=== PATIENT | female | born 1960 | race Caucasian/White ===

== ENCOUNTER → 2017-05-23 | Outpatient (CLI) | payer MEDICARE, MEDICAID ==
[~2017-05-23] MED LIST: /DULO30CA PO; /LAMO20TA OR; /LORA10TA PO; /QUET10TA OR; /ROPI1TA OR; CALC600T7 PO; CYMB1CAP PO; CYMB60CA3 PO; DRIS1CAP PO; DYAZCA PO; FLUTISP; IBUPPOW25 PO; KLOR10TA5 PO; MAG400TA PO; MELA3TAB12 PO; MULTLIQ7 PO; NEUR400C OR; OMEP40CA2 PO; SERT100T OR; SKEL800T97 PO; SUMA100T2 PO; VENTAER IN; VICO5TAB PO; VICOBULK PO; VOLT1GEL2 TOP; ZANA4TAB PO
--- NOTE | 2017-05-23 12:24 | REPMRS ---
Patient History The patient states she has not had a clinical breast exam in over a year. Patient is postmenopausal. No known family history of cancer. Digital Woman Screen Mammo: May 23, 2017 - Exam #: [id number] Bilateral CC and MLO view(s) were taken. Technologist: Jennyfer Judd, Technologist Prior study comparison: April 03, 2015, digital woman screen mammo performed at [facility]. January 10, 2014, digital woman screen mammo performed at [facility] to [facility]. FINDINGS: The breast tissue is heterogeneously dense. This may lower the sensitivity of mammography. There has been no change in the appearance of the mammogram from the prior studies. There is a moderate amount of residual fibroglandular tissue which is fairly symmetric. There is no interval development of dominant mass, areas of architectural distortion, or clustered microcalcification typical of malignancy. ASSESSMENT: BI-RADS/ACR category 1 mammogram. Negative. Recommendation Routine screening mammogram in 1 year (for women over age 40). This mammogram was interpreted with the aid of an FDA-approved computer-aided dectection system. Electronically Signed By: Du Kirkland MD 05/23/17 [id number]
== END ==
LOC: M WHC 11:05
PROVIDERS: ATTEND Family Medicine
DX: Z12.31 Encounter for screening mammogram for malignant neoplasm of breast (principal); R92.8 Other abnormal and inconclusive findings on diagnostic imaging of breast; Z78.0 Asymptomatic menopausal state

== ENCOUNTER → 2017-08-03 | Outpatient (CLI) | payer MEDICARE, MEDICAID ==
[2017-08-06 00:11] LABS: LACOSAMIDE LEVEL 4.5 ug/mL (5.0-10.0)
== END ==
LOC: M SMT 09:00
PROVIDERS: ATTEND Physician Assistant Medical
DX: Z51.81 Encounter for therapeutic drug level monitoring (principal); Z79.899 Other long term (current) drug therapy; R56.9 Unspecified convulsions

== ENCOUNTER → 2018-02-24 | Outpatient (REF) | payer MEDICARE, MEDICAID ==
[2018-02-28 00:07] LABS: LACOSAMIDE LEVEL 7.2 ug/mL (5.0-10.0)
[2018-02-28 00:07] LABS: LAMOTRIGINE (LAMICTAL) 3.4 ug/mL (2.0-20.0)
== END ==
LOC: M LABDRAWP 13:26
DX: R56.9 Unspecified convulsions (principal); Z51.81 Encounter for therapeutic drug level monitoring; Z79.899 Other long term (current) drug therapy
CPT/HCPCS: 82542

== ENCOUNTER → 2018-02-24 | Outpatient (REF) | payer MEDICARE, MEDICAID ==
[2018-02-24 13:38] LABS: BASO % 0.2 % (0.0-1.0); EOS # 0.1 10^3/uL (0.0-0.50); EOS % 1.1 % (0.0-3.0); HEMATOCRIT 40.4 % (36.0-47.0); HEMOGLOBIN 13.3 g/dl (12.0-15.5); IMMATURE GRANULOCYTE % 0.4 % (0-3.0); LYMPH # 2.6 10^3/uL (1.5-4.5); LYMPH % 30.9 % (24.0-44.0); MEAN CORPUSCULAR HEMOGLOBIN 30.4 pg (27.0-33.0); MEAN CORPUSCULAR HGB CONC 32.9 g/dl (32.0-36.5); MEAN CORPUSCULAR VOLUME 92.2 fl (80.0-96.0); MONO # 0.5 10^3/uL (0.0-0.8); MONO % 6.3 % (0.0-5.0); NEUTROPHILS # 5.1 10^3/uL (1.8-7.7); NEUTROPHILS % 61.1 % (36.0-66.0); PLATELET COUNT, AUTOMATED 290 10^3/uL (150-450); RED BLOOD COUNT 4.38 10^6/uL (4.00-5.40); RED CELL DISTRIBUTION WIDTH 14.1 % (11.5-14.5); WHITE BLOOD COUNT 8.3 10^3/uL (4.0-10.0)
[2018-02-24 14:08] LABS: ALBUMIN 3.7 GM/DL (3.2-5.2); ALBUMIN/GLOBULIN RATIO 1.03 (1.00-1.93); ALKALINE PHOSPHATASE 135 U/L (45-117); ALT/SGPT 29 U/L (12-78); ANION GAP 6 MEQ/L (8-16); AST/SGOT 13 U/L (7-37); BILIRUBIN,TOTAL 0.2 MG/DL (0.2-1.0); BLOOD UREA NITROGEN 20 MG/DL (7-18); CALCIUM LEVEL 9.2 MG/DL (8.5-10.1); CARBON DIOXIDE LEVEL 28 MEQ/L (21-32); CHLORIDE LEVEL 106 MEQ/L (98-107); CREATININE FOR GFR 0.61 MG/DL (0.55-1.30); GLOMERULAR FILTRATION RATE > 60.0 (>51); GLUCOSE, FASTING 91 MG/DL (70-100); MAGNESIUM LEVEL 2.2 MG/DL (1.8-2.4); POTASSIUM SERUM 4.3 MEQ/L (3.5-5.1); SODIUM LEVEL 140 MEQ/L (136-145); TOTAL PROTEIN 7.3 GM/DL (6.4-8.2)
[2018-03-01 14:15] LABS: HPV HYBRID CAPTURE II Negative (Negative)
== END ==
LOC: M SFHCWAGY 11:12
DX: Z12.4 Encounter for screening for malignant neoplasm of cervix (principal); N95.0 Postmenopausal bleeding; G25.81 Restless legs syndrome; R56.9 Unspecified convulsions; Z51.81 Encounter for therapeutic drug level monitoring; Z79.899 Other long term (current) drug therapy
CPT/HCPCS: 83735

== ENCOUNTER → 2018-02-27 | Outpatient (CLI) | payer MEDICARE, MEDICAID | LOC: M RAD 13:59 | DX: N95.0 Postmenopausal bleeding (principal) | CPT/HCPCS: 76856 ==

== ENCOUNTER → 2018-03-21 | Outpatient (REF) | payer MEDICARE, MEDICAID | LOC: M SFHCWAGY 14:16 | DX: N95.0 Postmenopausal bleeding (principal) | CPT/HCPCS: 88304 ==

== ENCOUNTER → 2018-05-05 | Outpatient (REF) | payer MEDICARE, MEDICAID ==
[2018-05-05 13:17] LABS: BACTERIA, URINE AUTO NEGATIVE (NEGATIVE); MUCUS, URINE SMALL (NEGATIVE); RBC, URINE AUTO 0 /HPF (0-3); SQUAMOUS EPITHELIAL CELL UR AU 1 /HPF (0-6); WBC, URINE AUTO 1 /HPF (0-3)
== END ==
LOC: M SMT 12:55
DX: R32 Unspecified urinary incontinence (principal)
CPT/HCPCS: 81015

== ENCOUNTER 2018-07-28 12:22 | Day surgery (SDC) | payer MEDICARE ==
[~2018-07-28 12:22] MED LIST changes: -/DULO30CA PO; -/LAMO20TA OR; -/LORA10TA PO; -/QUET10TA OR; -/ROPI1TA OR; -CALC600T7 PO; -CYMB1CAP PO; -CYMB60CA3 PO; -DRIS1CAP PO; -DYAZCA PO; -FLUTISP; -IBUPPOW25 PO; +KETOROLAC 60 MG/2 ML VIAL (J1885) As Ordered; -KLOR10TA5 PO; +LIDOCAINE 2% INJ 100 MG/5 ML SDV (FOR ANES.) As Ordered; -MAG400TA PO; -MELA3TAB12 PO; +MIDAZOLAM INJ 2 MG/2 ML VIAL (J2250) As Ordered; -MULTLIQ7 PO; -NEUR400C OR; -OMEP40CA2 PO; +ONDANSETRON 4MG/2ML VIAL (J2405) As Ordered; +PROPOFOL 200 MG/20 ML VIAL As Ordered; -SERT100T OR; -SKEL800T97 PO; -SUMA100T2 PO; -VENTAER IN; -VICO5TAB PO; -VICOBULK PO; -VOLT1GEL2 TOP; -ZANA4TAB PO; +dexameTHASONE 4 MG/ML 1ML VIAL (J1100) As Ordered; +fentaNYL 100 MCG/2 ML INJECTION (J3010) As Ordered
[2018-07-28 12:56] LABS: HEMATOCRIT 41.2 % (36.0-47.0); MEAN CORPUSCULAR HEMOGLOBIN 30.1 pg (27.0-33.0); MEAN CORPUSCULAR VOLUME 88.6 fl (80.0-96.0); PLATELET COUNT, AUTOMATED 316 10^3/uL (150-450); RED BLOOD COUNT 4.65 10^6/uL (4.00-5.40); RED CELL DISTRIBUTION WIDTH 14.4 % (11.5-14.5); WHITE BLOOD COUNT 9.5 10^3/uL (4.0-10.0)
[2018-07-28] MEDS ORDERED: LIDOCAINE 1% MDV 20ML VIAL SQ (13:30)
[2018-07-28] MEDS: LR 1,000 ML IV (13:30)
[2018-07-28] MEDS: ALBUTEROL SULFATE 2.5 MG/0.5 ML INH NEB SOLN INH (14:36)
[2018-07-28] MEDS: LIDOCAINE 1% SDV INJ 30 ML VIAL As Ordered (16:26)
[2018-07-28] MEDS ORDERED: ACETAMINOPHEN 500 MG TAB As Ordered (17:09)
[2018-07-28] MEDS ORDERED: LR 1,000 ML IV (17:45)
[2018-07-28] MEDS ORDERED: ACETAMINOPHEN 500 MG TAB PO (18:00)
== END 2018-07-28 17:50 | disposition home or self-care (01) ==
LOC: M SDC 12:22
DX: N95.0 Postmenopausal bleeding (principal); I10 Essential (primary) hypertension; G30.9 Alzheimer's disease, unspecified; G40.909 Epilepsy, unspecified, not intractable, without status epilepticus; M79.7 Fibromyalgia; K21.9 Gastro-esophageal reflux disease without esophagitis; F41.9 Anxiety disorder, unspecified; F32.9 Major depressive disorder, single episode, unspecified; R60.0 Localized edema; K58.9 Irritable bowel syndrome, unspecified; D64.9 Anemia, unspecified; R29.898 Other symptoms and signs involving the musculoskeletal system; M12.9 Arthropathy, unspecified; M54.9 Dorsalgia, unspecified; J44.9 Chronic obstructive pulmonary disease, unspecified; R06.02 Shortness of breath; F31.9 Bipolar disorder, unspecified; Z88.8 Allergy status to other drugs, medicaments and biological substances; Z79.899 Other long term (current) drug therapy; Z72.0 Tobacco use; Z87.820 Personal history of traumatic brain injury; Z87.442 Personal history of urinary calculi; Z87.440 Personal history of urinary (tract) infections; Z86.79 Personal history of other diseases of the circulatory system
CPT/HCPCS: 58558

== ENCOUNTER 2023-04-11 10:35 | Emergency (ER) | payer MEDICARE, MEDICAID ==
[~2023-04-11] VITALS: Ht 152.4 cm; Wt 66.8 kg
[~2023-04-11 10:35] MED LIST changes: +ALEV220T26 PO; +CALC600T7 PO; +CYMB1CAP PO; +CYMB1CAP5 PO; +CYMB60CA3 PO; +CYMB60CA4 PO; +DRIS1CAP PO; +DYAZCA PO; +FLON1SPR; +FLUT1SPR2; +HYDR-4514 PO; +IBUPPOW25 PO; -KETOROLAC 60 MG/2 ML VIAL (J1885) As Ordered; +KLOR10TA5 PO; +LAMI1TAB9 OR; +LAMI200T PO; -LIDOCAINE 2% INJ 100 MG/5 ML SDV (FOR ANES.) As Ordered; +LORA-385 PO; +MAG400TA PO; +MELA3TAB12 PO; -MIDAZOLAM INJ 2 MG/2 ML VIAL (J2250) As Ordered; +MULT1TAB10 PO; +MULTLIQ7 PO; +NAPR-849 PO; +NEUR400C OR; +OMEP40CA2 PO; +OMEP40CA4 PO; -ONDANSETRON 4MG/2ML VIAL (J2405) As Ordered; +POTA-149 PO; -PROPOFOL 200 MG/20 ML VIAL As Ordered; +REQU1TAB16 OR; +REQU2TAB PO; +REQU2TAB3 PO; +SERO1TAB OR; +SERT100T OR; +SKEL800T97 PO; +SUMA100T2 PO; +TIZA2CAP PO; +TRIA37.5 PO; +VENTAER IN; +VENTAER INH; +VICO5TAB PO; +VICO7.5T12 PO; +VICOBULK PO; +VIMP150T PO; +VOLT1GEL15 TD; +VOLT1GEL2 TOP; +ZANA4TAB PO; -dexameTHASONE 4 MG/ML 1ML VIAL (J1100) As Ordered; -fentaNYL 100 MCG/2 ML INJECTION (J3010) As Ordered
[2023-04-11 13:47] VITALS: BP 134/79; TEMP 98; O2SAT 95
== END 2023-04-11 13:48 | disposition home or self-care (01) ==
LOC: M ED 10:35
DX: G89.18 Other acute postprocedural pain (principal); G47.33 Obstructive sleep apnea (adult) (pediatric); F03.90 Unspecified dementia, unspecified severity, without behavioral disturbance, psychotic disturbance, mood disturbance, and anxiety; F17.200 Nicotine dependence, unspecified, uncomplicated; Z88.8 Allergy status to other drugs, medicaments and biological substances; Z79.899 Other long term (current) drug therapy; Z79.51 Long term (current) use of inhaled steroids; Z96.651 Presence of right artificial knee joint

== ENCOUNTER → 2024-04-13 | Outpatient (CLI) | payer MEDICARE, OTHER ==
[~2024-04-13] MED LIST changes: +ARIP1TAB6; +CALC-356; +GASTROGRAFIN SOLUTION 30ML As Ordered ONE; +NYST1POW9; +PREG50CA3; +SUMA100T2; +TERB250T91
== END ==
LOC: M RAD 07:55
PROVIDERS: ATTEND Internal Medicine Hematology & Oncology
DX: C50.812 Malignant neoplasm of overlapping sites of left female breast (principal)
CPT/HCPCS: 70450; 71250; 74176; Q9963

== ENCOUNTER → 2024-04-18 | Outpatient (CLI) | payer MEDICARE, MEDICAID ==
[~2024-04-18] MED LIST changes: -GASTROGRAFIN SOLUTION 30ML As Ordered ONE
== END ==
LOC: M CARPUL 10:22
PROVIDERS: ATTEND Internal Medicine Hematology & Oncology
DX: R06.01 Orthopnea (principal); C50.812 Malignant neoplasm of overlapping sites of left female breast; Z79.899 Other long term (current) drug therapy

== ENCOUNTER → 2024-05-10 | Outpatient (CLI) | payer MEDICARE, OTHER ==
[~2024-05-10] MED LIST changes: +ARIP10TA32; +LETR2.5T2 PO
== END ==
LOC: M RAD 09:57
PROVIDERS: ATTEND Internal Medicine Hematology & Oncology
DX: C50.812 Malignant neoplasm of overlapping sites of left female breast (principal)

== ENCOUNTER → 2024-06-26 | Outpatient (CLI) | payer MEDICARE, MEDICAID | LOC: M PLARAD 08:52 | PROVIDERS: ATTEND Internal Medicine Pulmonary Disease | DX: R91.8 Other nonspecific abnormal finding of lung field (principal); Z85.3 Personal history of malignant neoplasm of breast; C78.7 Secondary malignant neoplasm of liver and intrahepatic bile duct | CPT/HCPCS: 78815; A9552 ==

== ENCOUNTER 2024-07-11 08:51 | Day surgery (SDC) | payer MEDICARE, MEDICAID ==
[~2024-07-11] VITALS: Ht 157.5 cm; Wt 63.6 kg
[~2024-07-11 08:51] MED LIST changes: -ARIP10TA32; +ARIP10TA63; +ROPI4TAB36 PO
[2024-07-11] MEDS: CETACAINE SPRAY 5GM As Ordered ONE (13:25)
[2024-07-11] MEDS ORDERED: ONDANSETRON 4MG 2ML VIAL As Ordered ONE (13:31)
[2024-07-11] MEDS ORDERED: propofoL 200 MG/20 ML VIAL As Ordered ONE (13:31)
[2024-07-11] MEDS ORDERED: MIDAZOLAM INJ 2MG/2ML VIAL As Ordered ONE (13:31)
[2024-07-11] MEDS ORDERED: fentaNYL 100 MCG/2 ML INJECTION As Ordered ONE (13:31)
[2024-07-11] MEDS ORDERED: LIDOCAINE 2% 100MG/5ML SDV (FOR ANES.) As Ordered ONE (13:31)
[2024-07-11] MEDS ORDERED: SUGAMMADEX SODIUM 500 MG/5 ML VIAL (BRIDION) As Ordered ONE (13:31)
[2024-07-11] MEDS ORDERED: ROCURONIUM BROMIDE 50MG/5ML VIAL As Ordered ONE (13:31)
[2024-07-11] MEDS ORDERED: HYDROMORPHONE HCL 0.5 MG/ 0.5 ML SYRINGE IV PRN (13:55)
[2024-07-11] MEDS ORDERED: oxyCODONE 5MG TAB PO PRN (13:55)
[2024-07-11] MEDS ORDERED: LR 1,000 ML IV SCH (13:55)
[2024-07-11] MEDS ORDERED: ONDANSETRON 4MG 2ML VIAL IV PRN (13:55)
[2024-07-11] MEDS ORDERED: fentaNYL 100 MCG/2 ML INJECTION IV PRN (13:55)
[2024-07-11] MEDS: EPINEPHrine 1MG/10ML SYRINGE 1.5IN As Ordered ONE (14:06)
[2024-07-11 14:51] VITALS: BP 95/61; TEMP 96.5; O2SAT 92
== END 2024-07-11 15:27 | disposition home or self-care (01) ==
LOC: M SDC 08:51
PROVIDERS: ATTEND Internal Medicine Pulmonary Disease
DX: C34.12 Malignant neoplasm of upper lobe, left bronchus or lung (principal); C77.1 Secondary and unspecified malignant neoplasm of intrathoracic lymph nodes; R56.9 Unspecified convulsions; Z85.05 Personal history of malignant neoplasm of liver; Z85.51 Personal history of malignant neoplasm of bladder; Z85.3 Personal history of malignant neoplasm of breast; N39.3 Stress incontinence (female) (male); J44.9 Chronic obstructive pulmonary disease, unspecified; Z79.899 Other long term (current) drug therapy; G30.9 Alzheimer's disease, unspecified; F02.80 Dementia in other diseases classified elsewhere, unspecified severity, without behavioral disturbance, psychotic disturbance, mood disturbance, and anxiety; F43.10 Post-traumatic stress disorder, unspecified; G47.30 Sleep apnea, unspecified; Z92.21 Personal history of antineoplastic chemotherapy
CPT/HCPCS: 31624; 31652; 71045; 88108; 88173; 88305; 88313; J1100; J2250; J2405; J3010

== ENCOUNTER → 2024-07-18 | Outpatient (CLI) | payer MEDICARE, MEDICAID ==
[~2024-07-18] MED LIST changes: +HYDR-3490 PO; +LIDOCAINE 1% MDV 20ML VIAL As Ordered ONE; +TRAZ-252 PO
[2024-07-18 12:20] VITALS: TEMP 97.8
[2024-07-18 15:00] VITALS: BP 109/72; O2SAT 96
== END ==
LOC: M IRPRO 12:01
PROVIDERS: ATTEND Internal Medicine Hematology & Oncology
DX: C78.7 Secondary malignant neoplasm of liver and intrahepatic bile duct (principal)

== ENCOUNTER → 2024-07-19 | Outpatient (CLI) | payer MEDICARE, OTHER ==
[~2024-07-19] MED LIST changes: -LIDOCAINE 1% MDV 20ML VIAL As Ordered ONE
== END ==
LOC: M PLARAD 09:11
PROVIDERS: ATTEND Internal Medicine Hematology & Oncology
DX: C50.919 Malignant neoplasm of unspecified site of unspecified female breast (principal)

== ENCOUNTER → 2024-07-20 | Outpatient (CLI) | payer MEDICARE, MEDICAID | LOC: M ONCR 10:52 | PROVIDERS: ATTEND General Practice | DX: C34.12 Malignant neoplasm of upper lobe, left bronchus or lung (principal); C50.912 Malignant neoplasm of unspecified site of left female breast; C78.7 Secondary malignant neoplasm of liver and intrahepatic bile duct; Z79.51 Long term (current) use of inhaled steroids; Z79.890 Hormone replacement therapy; Z79.899 Other long term (current) drug therapy; Z87.891 Personal history of nicotine dependence; Z88.8 Allergy status to other drugs, medicaments and biological substances; Z90.49 Acquired absence of other specified parts of digestive tract; Z90.710 Acquired absence of both cervix and uterus ==

== ENCOUNTER → 2024-08-01 | Outpatient (CLI) | payer MEDICARE, MEDICAID ==
[~2024-08-01] MED LIST changes: +LIDO100S29 PO; +LIDOCAINE 1% MDV 20ML VIAL As Ordered ONE; +MIDAZOLAM INJ 2MG/2ML VIAL As Ordered ONE; +NS 1,000 ML IV SCH; +ONDA-282 PO; +OXYC1SOL3 PO; +ceFAZolin 2 GM/D5W 50 ML IV BAG As Ordered ONE; +fentaNYL 100 MCG/2 ML INJECTION As Ordered ONE
[2024-08-01 10:05] VITALS: TEMP 97.1
[2024-08-01] MEDS: ceFAZolin SOD 2 GM in IV 1 EA IV ONE (10:31)
[2024-08-01 11:45] VITALS: BP 137/81; O2SAT 92
== END ==
LOC: M IRPRO 09:46
PROVIDERS: ATTEND General Practice
DX: C34.12 Malignant neoplasm of upper lobe, left bronchus or lung (principal)
CPT/HCPCS: 36561; 99152; 99153; C1894; J0690; J1642; J2250; J3010

== ENCOUNTER → 2024-08-09 | Outpatient (RCR) | payer MEDICARE, MEDICAID ==
[2024-08-06 12:25] LABS: BASO % 0.2 % (0.0-1.0); HEMATOCRIT 39.8 % (36.0-47.0); HEMOGLOBIN 13.1 g/dl (12.0-15.5); LYMPH # 0.8 10^3/uL (1.5-5.0); LYMPH % 5.8 % (24.0-44.0); MEAN CORPUSCULAR HEMOGLOBIN 30.5 pg (27.0-33.0); MEAN CORPUSCULAR HGB CONC 32.9 g/dl (32.0-36.5); MEAN CORPUSCULAR VOLUME 92.8 fl (80.0-96.0); MONO # 0.7 10^3/uL (0.0-0.8); MONO % 5.2 % (2.0-8.0); NEUTROPHILS # 11.4 10^3/uL (1.5-8.5); NEUTROPHILS % 87.9 % (36.0-66.0); PLATELET COUNT, AUTOMATED 320 10^3/uL (150-450); RED BLOOD COUNT 4.29 10^6/uL (4.00-5.40)
[2024-08-06 13:12] LABS: ALBUMIN 2.4 G/DL (3.2-5.2); ALKALINE PHOSPHATASE 318 U/L (35-104); ALT/SGPT 72 U/L (7.0-40); AST/SGOT 148 U/L (<34); BILIRUBIN,TOTAL 1.2 MG/DL (0.3-1.2); BLOOD UREA NITROGEN 31 MG/DL (9-23); CALCIUM LEVEL 9.8 MG/DL (8.3-10.6); CARBON DIOXIDE LEVEL 28 MMOL/L (20-31); CHLORIDE LEVEL 104 MMOL/L (98-107); CREATININE FOR GFR 0.43 MG/DL (0.55-1.30); GLOMERULAR FILTRATION RATE > 60.0 (>45); GLUCOSE, FASTING 77 MG/DL (74-106); POTASSIUM SERUM 4.3 MMOL/L (3.5-5.1); SODIUM LEVEL 136 MMOL/L (136-145); TOTAL PROTEIN 5.7 G/DL (5.7-8.2)
[~2024-08-09] MED LIST changes: +LIDO30CR18 TOP; -LIDOCAINE 1% MDV 20ML VIAL As Ordered ONE; -MIDAZOLAM INJ 2MG/2ML VIAL As Ordered ONE; -NS 1,000 ML IV SCH; -ceFAZolin 2 GM/D5W 50 ML IV BAG As Ordered ONE; -fentaNYL 100 MCG/2 ML INJECTION As Ordered ONE
== END ==
LOC: M ONCR 07-24 13:33
PROVIDERS: ATTEND General Practice
DX: Z51.0 Encounter for antineoplastic radiation therapy (principal); C34.12 Malignant neoplasm of upper lobe, left bronchus or lung

== ENCOUNTER 2024-08-10 11:45 | Outpatient (RCR) | payer MEDICAID, MEDICARE, OTHER ==
[~2024-08-10 11:45] MED LIST changes: -LIDO30CR18 TOP; +NYST1POW3; -NYST1POW9
[2024-08-14] MEDS ORDERED: LIDO30CR18 TOP (10:54)
== END 2024-08-26 ==
LOC: M ONCR 11:45
PROVIDERS: ATTEND General Practice
DX: Z51.0 Encounter for antineoplastic radiation therapy (principal); C34.12 Malignant neoplasm of upper lobe, left bronchus or lung

== ENCOUNTER 2024-08-17 09:52 | Outpatient (RCR) | payer MEDICARE, MEDICAID ==
[2024-04-03 10:58] VITALS: BP 121/85; O2SAT 97
[2024-04-03 12:24] LABS: BASO % 0.5 % (0.0-1.0); EOS # 0.1 10^3/uL (0.0-0.5); EOS % 1.7 % (0.0-3.0); HEMATOCRIT 40.2 % (36.0-47.0); HEMOGLOBIN 13.5 g/dl (12.0-15.5); LYMPH # 2.3 10^3/uL (1.5-5.0); LYMPH % 34.7 % (24.0-44.0); MEAN CORPUSCULAR HEMOGLOBIN 31.2 pg (27.0-33.0); MEAN CORPUSCULAR HGB CONC 33.6 g/dl (32.0-36.5); MEAN CORPUSCULAR VOLUME 92.8 fl (80.0-96.0); MONO # 0.4 10^3/uL (0.0-0.8); MONO % 6.3 % (2.0-8.0); NEUTROPHILS # 3.7 10^3/uL (1.5-8.5); NEUTROPHILS % 56.5 % (36.0-66.0); PLATELET COUNT, AUTOMATED 267 10^3/uL (150-450); RED BLOOD COUNT 4.33 10^6/uL (4.00-5.40); WHITE BLOOD COUNT 6.5 10^3/uL (4.0-10.0)
[2024-04-03 13:05] LABS: ALBUMIN 3.3 G/DL (3.2-5.2); ALKALINE PHOSPHATASE 128 U/L (46-116); ALT/SGPT 13 U/L (7.0-40); AST/SGOT 12 U/L (<34); BILIRUBIN,TOTAL 0.4 MG/DL (0.3-1.2); BLOOD UREA NITROGEN 18 MG/DL (9-23); CALCIUM LEVEL 9.5 MG/DL (8.3-10.6); CARBON DIOXIDE LEVEL 31 MMOL/L (20-31); CHLORIDE LEVEL 110 MMOL/L (98-107); CREATININE FOR GFR 0.46 MG/DL (0.55-1.30); GLOMERULAR FILTRATION RATE > 60.0 (>45); GLUCOSE, FASTING 84 MG/DL (74-106); POTASSIUM SERUM 4.3 MMOL/L (3.5-5.1); SODIUM LEVEL 143 MMOL/L (136-145); TOTAL PROTEIN 6.5 G/DL (5.7-8.2)
[2024-04-18 11:52] LABS: BASO % 0.5 % (0.0-1.0); EOS # 0.1 10^3/uL (0.0-0.5); EOS % 1.9 % (0.0-3.0); HEMATOCRIT 41.3 % (36.0-47.0); HEMOGLOBIN 13.7 g/dl (12.0-15.5); MEAN CORPUSCULAR HGB CONC 33.2 g/dl (32.0-36.5); MEAN CORPUSCULAR VOLUME 93.4 fl (80.0-96.0); MONO # 0.5 10^3/uL (0.0-0.8); MONO % 6.7 % (2.0-8.0); NEUTROPHILS # 4.6 10^3/uL (1.5-8.5); NEUTROPHILS % 62.6 % (36.0-66.0); PLATELET COUNT, AUTOMATED 270 10^3/uL (150-450); RED BLOOD COUNT 4.42 10^6/uL (4.00-5.40); WHITE BLOOD COUNT 7.3 10^3/uL (4.0-10.0)
[2024-04-18 12:26] LABS: ALBUMIN 3.4 G/DL (3.2-5.2); ALKALINE PHOSPHATASE 149 U/L (46-116); ALT/SGPT 12 U/L (7.0-40); AST/SGOT 10 U/L (<34); BILIRUBIN,TOTAL 0.3 MG/DL (0.3-1.2); BLOOD UREA NITROGEN 20 MG/DL (9-23); CALCIUM LEVEL 9.6 MG/DL (8.3-10.6); CARBON DIOXIDE LEVEL 35 MMOL/L (20-31); CHLORIDE LEVEL 106 MMOL/L (98-107); CREATININE FOR GFR 0.56 MG/DL (0.55-1.30); GLOMERULAR FILTRATION RATE > 60.0 (>45); GLUCOSE, FASTING 102 MG/DL (74-106); POTASSIUM SERUM 4.1 MMOL/L (3.5-5.1); SODIUM LEVEL 141 MMOL/L (136-145); TOTAL PROTEIN 6.7 G/DL (5.7-8.2)
[2024-04-18 13:06] LABS: CA15-3 ANTIGEN 10.6 U/ML (<32.4)
[2024-05-04 13:05] VITALS: BP 119/83; O2SAT 95
[2024-06-29 11:40] VITALS: BP 108/71; O2SAT 96
[2024-06-29 12:46] LABS: BASO % 0.2 % (0.0-1.0); EOS % 0.1 % (0.0-3.0); HEMATOCRIT 40.5 % (36.0-47.0); HEMOGLOBIN 14.2 g/dl (12.0-15.5); LYMPH # 1.1 10^3/uL (1.5-5.0); MEAN CORPUSCULAR HEMOGLOBIN 31.3 pg (27.0-33.0); MEAN CORPUSCULAR HGB CONC 35.1 g/dl (32.0-36.5); MEAN CORPUSCULAR VOLUME 89.4 fl (80.0-96.0); MONO % 7.6 % (2.0-8.0); NEUTROPHILS # 11.2 10^3/uL (1.5-8.5); NEUTROPHILS % 83.7 % (36.0-66.0); PLATELET COUNT, AUTOMATED 298 10^3/uL (150-450); RED BLOOD COUNT 4.53 10^6/uL (4.00-5.40); WHITE BLOOD COUNT 13.3 10^3/uL (4.0-10.0)
[2024-06-29 13:16] LABS: INR 1.17; PARTIAL THROMBOPLASTIN TIME 29.3 SECONDS (24.8-34.2); PROTHROMBIN TIME 14.5 SECONDS (12.5-14.5)
[2024-06-29 13:19] LABS: ALBUMIN 3.1 G/DL (3.2-5.2); ALKALINE PHOSPHATASE 207 U/L (46-116); ALT/SGPT 38 U/L (7.0-40); AST/SGOT 58 U/L (<34); BILIRUBIN,TOTAL 1.1 MG/DL (0.3-1.2); BLOOD UREA NITROGEN 25 MG/DL (9-23); CALCIUM LEVEL 9.6 MG/DL (8.3-10.6); CARBON DIOXIDE LEVEL 30 MMOL/L (20-31); CHLORIDE LEVEL 100 MMOL/L (98-107); GLOMERULAR FILTRATION RATE > 60.0 (>45); GLUCOSE, FASTING 94 MG/DL (74-106); POTASSIUM SERUM 3.3 MMOL/L (3.5-5.1); SODIUM LEVEL 135 MMOL/L (136-145)
[2024-07-27 14:42] VITALS: BP 110/84; O2SAT 93
[2024-07-27 15:32] LABS: BASO % 0.2 % (0.0-1.0); EOS % 0.1 % (0.0-3.0); HEMATOCRIT 39.5 % (36.0-47.0); HEMOGLOBIN 13.3 g/dl (12.0-15.5); LYMPH # 1.4 10^3/uL (1.5-5.0); LYMPH % 8.5 % (24.0-44.0); MEAN CORPUSCULAR HEMOGLOBIN 30.9 pg (27.0-33.0); MEAN CORPUSCULAR HGB CONC 33.7 g/dl (32.0-36.5); MEAN CORPUSCULAR VOLUME 91.9 fl (80.0-96.0); NEUTROPHILS # 13.8 10^3/uL (1.5-8.5); NEUTROPHILS % 84.6 % (36.0-66.0); PLATELET COUNT, AUTOMATED 423 10^3/uL (150-450); WHITE BLOOD COUNT 16.3 10^3/uL (4.0-10.0)
[2024-07-27 15:50] LABS: INR 1.16; PARTIAL THROMBOPLASTIN TIME 26.3 SECONDS (24.8-34.2); PROTHROMBIN TIME 14.4 SECONDS (12.5-14.5)
[2024-07-27 16:10] LABS: ALBUMIN 2.4 G/DL (3.2-5.2); ALKALINE PHOSPHATASE 317 U/L (46-116); ALT/SGPT 59 U/L (7.0-40); AST/SGOT 101 U/L (<34); BILIRUBIN,TOTAL 0.5 MG/DL (0.3-1.2); BLOOD UREA NITROGEN 17 MG/DL (9-23); CALCIUM LEVEL 9.3 MG/DL (8.3-10.6); CARBON DIOXIDE LEVEL 29 MMOL/L (20-31); CHLORIDE LEVEL 103 MMOL/L (98-107); CREATININE FOR GFR 0.41 MG/DL (0.55-1.30); FERRITIN 220.9 NG/ML (7.3-270.7); GLOMERULAR FILTRATION RATE > 60.0 (>45); GLUCOSE, FASTING 111 MG/DL (74-106); IRON (FE) 25 UG/DL (50-170); PERCENT SATURATION 9.3 % (13.2-45.0); POTASSIUM SERUM 3.7 MMOL/L (3.5-5.1); SODIUM LEVEL 136 MMOL/L (136-145); TOTAL IRON BINDING CAPACITY 268 UG/DL (250-425); TOTAL PROTEIN 6.3 G/DL (5.7-8.2)
[2024-07-27 16:11] LABS: THYROID STIMULATING HORMONE 1.806 uIU/ML (0.55-4.78)
[2024-07-28 11:02] LABS: FREE T3 3.1 PG/ML (2.3-4.2)
[2024-08-14 10:56] LABS: BASO % 0.1 % (0.0-1.0); HEMATOCRIT 39.7 % (36.0-47.0); HEMOGLOBIN 13.2 g/dl (12.0-15.5); LYMPH # 0.3 10^3/uL (1.5-5.0); LYMPH % 2.7 % (24.0-44.0); MEAN CORPUSCULAR HEMOGLOBIN 30.6 pg (27.0-33.0); MEAN CORPUSCULAR HGB CONC 33.2 g/dl (32.0-36.5); MEAN CORPUSCULAR VOLUME 92.1 fl (80.0-96.0); MONO # 0.7 10^3/uL (0.0-0.8); MONO % 5.7 % (2.0-8.0); NEUTROPHILS # 10.3 10^3/uL (1.5-8.5); NEUTROPHILS % 90.7 % (36.0-66.0); PLATELET COUNT, AUTOMATED 298 10^3/uL (150-450); RED BLOOD COUNT 4.31 10^6/uL (4.00-5.40); WHITE BLOOD COUNT 11.3 10^3/uL (4.0-10.0)
[2024-08-14 11:49] LABS: ALBUMIN 2.6 G/DL (3.2-5.2); ALKALINE PHOSPHATASE 304 U/L (35-104); ALT/SGPT 120 U/L (7.0-40); AST/SGOT 247 U/L (<34); BILIRUBIN,TOTAL 2.5 MG/DL (0.3-1.2); BLOOD UREA NITROGEN 32 MG/DL (9-23); CALCIUM LEVEL 9.2 MG/DL (8.3-10.6); CARBON DIOXIDE LEVEL 31 MMOL/L (20-31); CHLORIDE LEVEL 96 MMOL/L (98-107); CREATININE FOR GFR 0.67 MG/DL (0.55-1.30); GLOMERULAR FILTRATION RATE > 60.0 (>45); GLUCOSE, FASTING 95 MG/DL (74-106); POTASSIUM SERUM 2.7 MMOL/L (3.5-5.1); SODIUM LEVEL 138 MMOL/L (136-145); TOTAL PROTEIN 5.9 G/DL (5.7-8.2)
[2024-08-15 08:29] VITALS: BP 123/81; O2SAT 93
[2024-08-15] MEDS: KCL 10MEQ/100ML SWI (KRUN) 100 ML IV SCH (09:21)
[2024-08-15] MEDS: FOSAPREPITANT 150 MG, VIAL 2 BAG 13MM ADAPTER 1 EACH in NS 250 ML IV SCH (10:44)
[2024-08-15] MEDS: PALONOSETRON 0.25MG/5ML VIAL (ALOXI) IV SCH (10:45)
[2024-08-15] MEDS: CARBOPLATIN IV SCH (11:26)
[2024-08-15] MEDS: NS IV SCH ×2 (11:26→12:08)
[2024-08-15] MEDS: ETOPOSIDE IV SCH (12:08)
[2024-08-15] MEDS: SODIUM CHLORIDE 0.9% INJ 10 ML SYR IV PRN (13:13)
[2024-08-16 10:07] VITALS: BP 112/73; O2SAT 96
[2024-08-16] MEDS: dexAMETHasone 4 MG TAB PO SCH (10:11)
[2024-08-16] MEDS: PROCHLORPERAZINE 5MG TAB PO SCH (10:11)
[2024-08-16] MEDS: ETOPOSIDE IV SCH (11:35)
[2024-08-16] MEDS: NS IV SCH (11:35)
[2024-08-16] MEDS: SODIUM CHLORIDE 0.9% INJ 10 ML SYR IV PRN (12:40)
[~2024-08-17] VITALS: Ht 157.5 cm; Wt 62.8 kg
[~2024-08-17 09:52] MED LIST changes: +LIDO30CR18 TOP
[2024-08-17 10:03] VITALS: BP 95/63; O2SAT 94
[2024-08-17] MEDS: PROCHLORPERAZINE 5MG TAB PO SCH (10:17)
[2024-08-17] MEDS: dexAMETHasone 4 MG TAB PO SCH (10:18)
[2024-08-17] MEDS: NS IV SCH (10:37)
[2024-08-17] MEDS: ETOPOSIDE IV SCH (10:37)
[2024-08-17] MEDS: SODIUM CHLORIDE 0.9% INJ 10 ML SYR IV PRN (11:11)
== END 2024-08-26 | disposition expired ==
LOC: M ONCM 09:52
PROVIDERS: ATTEND Internal Medicine Hematology & Oncology
DX: C50.512 Malignant neoplasm of lower-outer quadrant of left female breast (principal); C34.12 Malignant neoplasm of upper lobe, left bronchus or lung; C77.1 Secondary and unspecified malignant neoplasm of intrathoracic lymph nodes; C78.7 Secondary malignant neoplasm of liver and intrahepatic bile duct; R91.8 Other nonspecific abnormal finding of lung field; M06.9 Rheumatoid arthritis, unspecified; M79.7 Fibromyalgia; G31.84 Mild cognitive impairment of uncertain or unknown etiology; F60.9 Personality disorder, unspecified; M85.80 Other specified disorders of bone density and structure, unspecified site; I67.1 Cerebral aneurysm, nonruptured; F41.9 Anxiety disorder, unspecified; Z79.899 Other long term (current) drug therapy; Z51.89 Encounter for other specified aftercare; R13.10 Dysphagia, unspecified; R06.02 Shortness of breath; R51.9 Headache, unspecified
CPT/HCPCS: 36415; 36591; 80053; 82024; 82728; 83550; 84439; 84443; 84481; 85025; 85610; 85730; 86300; 96366; 96367; 96368; 96375; 96413; 96417; G0463; J1100; J1453; J1642; J2469; J9045; J9181